=== PATIENT | female | born 2000 | race Caucasian/White ===

== ENCOUNTER 2021-03-02 12:48 | Emergency (ER) | payer OTHER ==
[~2021-03-02] VITALS: Ht 149.9 cm; Wt 89.0 kg
[~2021-03-02 12:48] MED LIST: RALTEGRAVIR 400 MG TAB (ISENTRESS) PO SCH; TRUVADA 200MG/300MG TABLET PO SCH
[2021-03-02 12:49] VITALS: BP 138/76
[2021-03-02 13:48] LABS: BASO # 0.1 10^3/uL (0.0-0.2); BASO % 0.5 % (0.0-1.0); EOS # 0.1 10^3/uL (0.0-0.5); EOS % 1.3 % (0.0-3.0); HEMATOCRIT 42.4 % (36.0-47.0); LYMPH # 1.6 10^3/uL (1.5-5.0); LYMPH % 16.3 % (24.0-44.0); MEAN CORPUSCULAR HEMOGLOBIN 28.7 pg (27.0-33.0); MEAN CORPUSCULAR VOLUME 86.9 fl (80.0-96.0); MONO # 0.6 10^3/uL (0.0-0.8); MONO % 5.5 % (2.0-8.0); NEUTROPHILS # 7.7 10^3/uL (1.5-8.5); NEUTROPHILS % 76.1 % (36.0-66.0); PLATELET COUNT, AUTOMATED 257 10^3/uL (150-450); RED BLOOD COUNT 4.88 10^6/uL (4.00-5.40); WHITE BLOOD COUNT 10.1 10^3/uL (4.0-10.0)
[2021-03-02 14:20] LABS: ALBUMIN 3.8 GM/DL (3.2-5.2); ALT/SGPT 35 U/L (12-78); BILIRUBIN,TOTAL 0.3 MG/DL (0.2-1.0); BLOOD UREA NITROGEN 7 MG/DL (7-18); CARBON DIOXIDE LEVEL 24 MEQ/L (21-32); CHLORIDE LEVEL 110 MEQ/L (98-107); CREATININE FOR GFR 0.61 MG/DL (0.55-1.30); GLOMERULAR FILTRATION RATE > 60.0 (>60); GLUCOSE, FASTING 91 MG/DL (70-100); SODIUM LEVEL 141 MEQ/L (136-145); TOTAL PROTEIN 7.9 GM/DL (6.4-8.2)
[2021-03-02 14:23] LABS: HCG, SERUM QUALITATIVE NEGATIVE (NEGATIVE)
[2021-03-02] MEDS ORDERED: LIDOCAINE 1% SDV 5ML VIAL DILUENT ONE (14:35)
[2021-03-02] MEDS ORDERED: EXPOSURE KIT-ADULT 7 DAY SUPPLY PO ONE (14:35)
[2021-03-02] MEDS ORDERED: EMTR1TAB16 PO (14:35)
[2021-03-02] MEDS ORDERED: cefTRIAXone SOD 250MG VIAL (J0696 PER 250MG) IM ONE (14:35)
[2021-03-02] MEDS ORDERED: DOXY-342 PO (14:35)
[2021-03-02] MEDS ORDERED: ULIPRISTAL ACETATE 30 MG TAB (ELLA) PO ONE (14:35)
[2021-03-02] MEDS ORDERED: metroNIDAZOLE (FLAGYL) 500MG TABLET PO ONE (14:35)
[2021-03-02] MEDS ORDERED: RALT40TA PO (14:35)
[2021-03-02] MEDS ORDERED: TRUVADA 200MG/300MG TABLET PO ONE (14:50)
[2021-03-02] MEDS ORDERED: RALTEGRAVIR 400 MG TAB (ISENTRESS) PO ONE (14:50)
[2021-03-03 11:15] LABS: HEPATITIS B SURFACE ANTIGEN NEGATIVE (NEGATIVE)
[2021-03-03 11:23] LABS: HEPATITIS B SURFACE ANTIBODY NEGATIVE (POSITIVE)
[2021-03-03 11:32] LABS: HEPATITIS C VIRUS ABY INDEX 0.1 INDEX (<0.8)
[2021-03-03 11:33] LABS: HIV 1&2 SCREEN CENTAUR NEGATIVE (NEGATIVE)
== END 2021-03-02 15:20 | disposition home or self-care (01) ==
LOC: M ED 12:48
DX: T76.21XA Adult sexual abuse, suspected, initial encounter (principal)
CPT/HCPCS: 80053; 84703; 85025; 86706; 86780; 86803; 87340; 87389; 96372; 99284; J0696

== ENCOUNTER → 2022-02-18 | Outpatient (CLI) | payer OTHER ==
[~2022-02-18] MED LIST changes: +DOXY-342 PO; +EMTR1TAB16 PO; +RALT40TA PO; -RALTEGRAVIR 400 MG TAB (ISENTRESS) PO SCH; -TRUVADA 200MG/300MG TABLET PO SCH
[2022-02-18 15:55] LABS: BASO % 0.3 % (0.0-1.0); EOS # 0.2 10^3/uL (0.0-0.5); EOS % 2.5 % (0.0-3.0); HEMOGLOBIN 13.3 g/dl (12.0-15.5); LYMPH # 1.5 10^3/uL (1.5-5.0); LYMPH % 15.8 % (24.0-44.0); MEAN CORPUSCULAR HEMOGLOBIN 29.4 pg (27.0-33.0); MEAN CORPUSCULAR HGB CONC 33.3 g/dl (32.0-36.5); MEAN CORPUSCULAR VOLUME 88.5 fl (80.0-96.0); MONO # 0.6 10^3/uL (0.0-0.8); MONO % 6.9 % (2.0-8.0); NEUTROPHILS # 6.9 10^3/uL (1.5-8.5); NEUTROPHILS % 74.3 % (36.0-66.0); PLATELET COUNT, AUTOMATED 271 10^3/uL (150-450); RED BLOOD COUNT 4.52 10^6/uL (4.00-5.40); WHITE BLOOD COUNT 9.2 10^3/uL (4.0-10.0)
[2022-02-18 17:25] LABS: HEPATITIS C VIRUS ABY INDEX 0.1 INDEX (<0.8); HIV 1&2 SCREEN CENTAUR NEGATIVE (NEGATIVE)
[2022-02-18 22:26] LABS: GC DNA AMPLIFICATION NEGATIVE (NEGATIVE)
== END ==
LOC: M PLALAB 14:17
PROVIDERS: ATTEND Advanced Practice Midwife
DX: O99.211 Obesity complicating pregnancy, first trimester (principal); Z3A.00 Weeks of gestation of pregnancy not specified

== ENCOUNTER → 2022-03-20 | Outpatient (CLI) | payer OTHER | LOC: M PLALAB 13:55 | PROVIDERS: ATTEND Advanced Practice Midwife | DX: Z34.82 Encounter for supervision of other normal pregnancy, second trimester (principal) ==

== ENCOUNTER → 2022-04-17 | Outpatient (CLI) | payer OTHER | LOC: M PLALAB 14:29 | PROVIDERS: ATTEND Advanced Practice Midwife | DX: Z34.02 Encounter for supervision of normal first pregnancy, second trimester (principal) ==

== ENCOUNTER → 2022-04-17 | Outpatient (CLI) | payer OTHER | LOC: M WHC 10:33 | PROVIDERS: ATTEND Advanced Practice Midwife | DX: Z34.82 Encounter for supervision of other normal pregnancy, second trimester (principal); Z3A.19 19 weeks gestation of pregnancy ==

== ENCOUNTER → 2022-05-13 | Outpatient (CLI) | payer OTHER | LOC: M WHC 11:55 | PROVIDERS: ATTEND Advanced Practice Midwife | DX: Z34.02 Encounter for supervision of normal first pregnancy, second trimester (principal) ==

== ENCOUNTER → 2022-06-12 | Outpatient (CLI) | payer OTHER ==
[~2022-06-12] MED LIST changes: -DOXY-342 PO; +DOXY100C81 PO
[2022-06-12 15:40] LABS: HEMATOCRIT 34.4 % (36.0-47.0); MEAN CORPUSCULAR HEMOGLOBIN 29.4 pg (27.0-33.0); PLATELET COUNT, AUTOMATED 259 10^3/uL (150-450); RED BLOOD COUNT 3.74 10^6/uL (4.00-5.40); WHITE BLOOD COUNT 9.7 10^3/uL (4.0-10.0)
[2022-06-12 17:28] LABS: GC DNA AMPLIFICATION NEGATIVE (NEGATIVE)
== END ==
LOC: M PLALAB 12:09
PROVIDERS: ATTEND Specialist
DX: O09.292 Supervision of pregnancy with other poor reproductive or obstetric history, second trimester (principal)

== ENCOUNTER → 2022-06-22 | Outpatient (CLI) | payer OTHER | LOC: M LAB 06:36 | PROVIDERS: ATTEND Specialist | DX: Z34.82 Encounter for supervision of other normal pregnancy, second trimester (principal) ==

== ENCOUNTER → 2022-08-04 | Outpatient (CLI) | payer OTHER ==
[2022-08-04 17:38] LABS: HEMATOCRIT 36.8 % (36.0-47.0); HEMOGLOBIN 11.7 g/dl (12.0-15.5); MEAN CORPUSCULAR HEMOGLOBIN 28.1 pg (27.0-33.0); MEAN CORPUSCULAR HGB CONC 31.8 g/dl (32.0-36.5); MEAN CORPUSCULAR VOLUME 88.2 fl (80.0-96.0); PLATELET COUNT, AUTOMATED 212 10^3/uL (150-450); RED BLOOD COUNT 4.17 10^6/uL (4.00-5.40); WHITE BLOOD COUNT 11.3 10^3/uL (4.0-10.0)
[2022-08-04 17:49] LABS: TOTAL PROTEIN,RANDOM URINE 38.1 MG/DL (0.0-14.0)
[2022-08-04 17:51] LABS: URIC ACID 6.1 MG/DL (3.1-7.8)
[2022-08-04 17:53] LABS: LDH LACTATE DEHYDROGENASE 224 U/L (120-246)
[2022-08-04 17:54] LABS: ALT/SGPT 9 U/L (7.0-40); AST/SGOT 17 U/L (<34); BILIRUBIN,TOTAL 0.2 MG/DL (0.3-1.2); CREATININE,RANDOM URINE 51.2 MG/DL; GLOMERULAR FILTRATION RATE > 60.0 (>60)
== END ==
LOC: M PLALAB 14:39
PROVIDERS: ATTEND Advanced Practice Midwife
DX: Z34.83 Encounter for supervision of other normal pregnancy, third trimester (principal)

== ENCOUNTER 2022-08-10 15:18 | Outpatient (CLI) | payer OTHER ==
[~2022-08-10] VITALS: Ht 149.9 cm; Wt 113.4 kg
[2022-08-10 15:47] VITALS: BP 139/79
[2022-08-10] MEDS ORDERED: PRENTAB9 PO (15:55)
[2022-08-10] MEDS ORDERED: OMEP10CASR PO (15:55)
[2022-08-10] MEDS ORDERED: HOME MED LIST COMPLETE! XX SCH (16:25)
[2022-08-10 17:45] VITALS: BP 141/69
== END 2022-08-10 18:00 | disposition home or self-care (01) ==
LOC: M LDO 15:18
PROVIDERS: ATTEND Advanced Practice Midwife
DX: O14.92 Unspecified pre-eclampsia, second trimester (principal); O99.213 Obesity complicating pregnancy, third trimester; E66.01 Morbid (severe) obesity due to excess calories; Z3A.36 36 weeks gestation of pregnancy

== ENCOUNTER 2022-08-12 17:21 | Inpatient (IN) | payer OTHER ==
[2022-08-12] VITALS (23 sets, daily range): BP systolic 131–214; BP diastolic 70–107
[~2022-08-12] VITALS: Ht 149.9 cm; Wt 114.7 kg
[~2022-08-12 17:21] MED LIST changes: +OMEP10CASR PO; +PRENTAB9 PO
[2022-08-12] MEDS ORDERED: PENICILLIN G POTASSIUM 5 MU IV 5 MU in D5W MINI-BAG PLUS 100 ML IV STA (17:53)
[2022-08-12] MEDS ORDERED: OXYTOCIN DRIP 30 UNITS in IV 1 EA IV PRN ×4 (17:55)
[2022-08-12] MEDS ORDERED: NIFEdipine 10 MG CAP PO ONE (17:55)
[2022-08-12] MEDS ORDERED: LIDOCAINE 1% MDV 20ML VIAL INFIL PRN (17:55)
[2022-08-12] MEDS ORDERED: MAG Sulf (L&D) 4 GM/100 ML 4 GM in IV 1 EA IV ONE (17:55)
[2022-08-12] MEDS ORDERED: CARBOPROST TROMETHAMINE 250 MCG/ML AMP IM PRN (17:55)
[2022-08-12] MEDS ORDERED: OXYTOCIN INJ 10UNITS/ML 1ML VIAL IM PRN (17:55)
[2022-08-12] MEDS ORDERED: miSOPROStol 50MCG 1/2 TABLET PO ONE (17:55)
[2022-08-12] MEDS ORDERED: TRANEXAMIC ACID INJection 1,000 MG in NS 100 ML IV PRN (17:55)
[2022-08-12] MEDS ORDERED: CALCIUM GLUCONATE 1,000 MG in D5W MINI-BAG PLUS 100 ML IV PRN (17:55)
[2022-08-12] MEDS ORDERED: BETAMETHASONE SOLUSPAN 6MG/ML 5ML VIAL IM SCH (17:55)
[2022-08-12 18:36] LABS: HEMATOCRIT 33.1 % (36.0-47.0); HEMOGLOBIN 10.8 g/dl (12.0-15.5); MEAN CORPUSCULAR HEMOGLOBIN 27.7 pg (27.0-33.0); MEAN CORPUSCULAR HGB CONC 32.6 g/dl (32.0-36.5); MEAN CORPUSCULAR VOLUME 84.9 fl (80.0-96.0); PLATELET COUNT, AUTOMATED 207 10^3/uL (150-450); WHITE BLOOD COUNT 10.1 10^3/uL (4.0-10.0)
[2022-08-12] MEDS: MAG Sulf (OBGYN) 20GM/500ML 20,000 MG in IV 1 EA IV SCH (18:46)
[2022-08-12 19:08] LABS: URIC ACID 7.4 MG/DL (3.1-7.8)
[2022-08-12 19:10] LABS: CREATININE,RANDOM URINE 102.2 MG/DL; LDH LACTATE DEHYDROGENASE 263 U/L (120-246)
[2022-08-12 19:11] LABS: ALT/SGPT 14 U/L (7.0-40); AST/SGOT 17 U/L (<34); BILIRUBIN,TOTAL < 0.2 MG/DL (0.3-1.2); CREATININE FOR GFR 0.65 MG/DL (0.55-1.30); GLOMERULAR FILTRATION RATE > 60.0 (>60)
[2022-08-12 19:13] LABS: TOTAL PROTEIN,RANDOM URINE 1053.4 MG/DL (0.0-14.0)
[2022-08-12] MEDS ORDERED: OXYTOCIN DRIP 30 UNITS in IV 1 EA IV SCH ×2 (19:30→23:40)
[2022-08-12] MEDS: LR 1,000 ML IV SCH (19:46)
[2022-08-12] MEDS ORDERED: ceFAZolin SOD 2 GM in IV 1 EA IV ONE (22:20)
[2022-08-12] MEDS ORDERED: BICITRA 30ML SOLN UDC PO ONE (22:20)
[2022-08-12] MEDS ORDERED: PEN G POT 3,000,000 UNIT/50 ML 3,000,000 UNIT in IV 1 EA IV SCH (22:26)
[2022-08-12] MEDS ORDERED: MORPHINE PRES-FREE INJ 10 MG/10 ML VIAL As Ordered ONE (22:41)
[2022-08-12] MEDS ORDERED: OXYTOCIN 30UNITS IN 0.9% NaCl 500ML IV BAG As Ordered ONE (22:43)
[2022-08-12] MEDS ORDERED: KETOROLAC 60MG 2ML VIAL As Ordered ONE (22:43)
[2022-08-12] MEDS ORDERED: ONDANSETRON 4MG 2ML VIAL As Ordered ONE (22:43)
[2022-08-12] MEDS ORDERED: PHENYLephrine 500MCG 5ML (100MCG/ML) SYRINGE As Ordered ONE (23:25)
[2022-08-12] MEDS ORDERED: SIMETHICONE 80MG CHEW TAB PO PRN (23:40)
[2022-08-12] MEDS ORDERED: RHOGAM 300MCG (1500IU) INJ IM SCH (23:40)
[2022-08-12] MEDS ORDERED: MOM 30ML SUSPENSION UDC PO PRN (23:40)
[2022-08-12] MEDS ORDERED: PROMETHAZINE 25 MG TAB PO PRN (23:40)
[2022-08-12] MEDS ORDERED: PERCOCET 5MG/325MG TAB PO PRN ×2 (23:40)
[2022-08-12] MEDS ORDERED: ONDANSETRON 4MG 2ML VIAL IV PRN (23:40)
[2022-08-13] VITALS (41 sets, daily range): BP systolic 114–164; BP diastolic 55–88
[2022-08-13] MEDS ORDERED: diphenhydrAMINE 50MG/ML VIAL IV PRN
[2022-08-13] MEDS ORDERED: ONDANSETRON 4MG 2ML VIAL IV PRN
[2022-08-13] MEDS: SLF 3 ML SYR IV SCH
[2022-08-13] MEDS ORDERED: NALOXONE INJ 0.4MG/1ML VIAL IV PRN ×2
[2022-08-13] MEDS ORDERED: METOCLOPRAMIDE INJ 10MG/2ML VIAL IV PRN
[2022-08-13] MEDS ORDERED: **NOTE PATIENT COMMENT** MISC XX SCH
[2022-08-13] MEDS ORDERED: UNRESOLVED CLARIFICATION ENTRY XX SCH (00:01)
[2022-08-13] MEDS ORDERED: IBUP80TA PO (00:04)
[2022-08-13] MEDS ORDERED: OXYC1TAB23 PO (00:04)
[2022-08-13] MEDS ORDERED: LABETALOL 100MG/20ML VIAL IV STA (04:23)
[2022-08-13] MEDS: KETOROLAC 30 MG/ML 1ML VIAL IV SCH ×3 (04:40→17:13)
[2022-08-13] MEDS: LR 1,000 ML IV SCH ×2 (05:13→16:23)
[2022-08-13 06:06] LABS: HEMATOCRIT 32.2 % (36.0-47.0); HEMOGLOBIN 10.3 g/dl (12.0-15.5); MEAN CORPUSCULAR HEMOGLOBIN 27.8 pg (27.0-33.0); PLATELET COUNT, AUTOMATED 199 10^3/uL (150-450); WHITE BLOOD COUNT 16.6 10^3/uL (4.0-10.0)
[2022-08-13] MEDS: MAG Sulf (OBGYN) 20GM/500ML 20,000 MG in IV 1 EA IV SCH ×2 (06:27→16:24)
[2022-08-13] MEDS: ENOXAPARIN 40MG/0.4ML SYRINGE (J1650 PER 10MG) SC SCH ×2 (08:39→20:00)
[2022-08-13] MEDS: PRENATAL VITAMINS CHEWABLE TABLET PO SCH (19:00)
[2022-08-13] MEDS: DOCUSATE SODIUM 100MG CAPSULE PO SCH ×2 (19:00→21:00)
[2022-08-14] MEDS: IBUPROFEN 800 MG TAB PO SCH ×3 (01:31→17:10)
[2022-08-14 02:00] VITALS: BP 138/74
[2022-08-14 06:00] VITALS: BP 124/76
[2022-08-14] MEDS: PRENATAL VITAMINS CHEWABLE TABLET PO SCH (07:31)
[2022-08-14] MEDS: ENOXAPARIN 40MG/0.4ML SYRINGE (J1650 PER 10MG) SC SCH ×2 (07:31→20:10)
[2022-08-14] MEDS: DOCUSATE SODIUM 100MG CAPSULE PO SCH ×2 (07:31→20:10)
[2022-08-14] MEDS: SLF 3 ML SYR IV SCH ×2 (07:54→07:55)
[2022-08-14] MEDS ORDERED: MEASLES,MUMPS,RUBELLA VACCINE INJ (MMR-II) SC.IMMUN ONE (09:00)
[2022-08-14 10:00] VITALS: BP 148/84
[2022-08-14 14:00] VITALS: BP 152/83
[2022-08-14 18:00] VITALS: BP 140/80
[2022-08-14 22:00] VITALS: BP 142/68
[2022-08-15] MEDS: IBUPROFEN 800 MG TAB PO SCH ×3 (01:23→16:33)
[2022-08-15 02:00] VITALS: BP 154/72
[2022-08-15 05:55] VITALS: BP 146/68
[2022-08-15 08:12] LABS: HEMATOCRIT 29.9 % (36.0-47.0); HEMOGLOBIN 9.3 g/dl (12.0-15.5); MEAN CORPUSCULAR HEMOGLOBIN 27.4 pg (27.0-33.0); MEAN CORPUSCULAR HGB CONC 31.1 g/dl (32.0-36.5); MEAN CORPUSCULAR VOLUME 88.2 fl (80.0-96.0); PLATELET COUNT, AUTOMATED 186 10^3/uL (150-450); RED BLOOD COUNT 3.39 10^6/uL (4.00-5.40); WHITE BLOOD COUNT 9.5 10^3/uL (4.0-10.0)
[2022-08-15] MEDS: ENOXAPARIN 40MG/0.4ML SYRINGE (J1650 PER 10MG) SC SCH ×2 (08:33→20:15)
[2022-08-15] MEDS: PRENATAL VITAMINS CHEWABLE TABLET PO SCH (08:33)
[2022-08-15] MEDS: DOCUSATE SODIUM 100MG CAPSULE PO SCH ×2 (08:34→20:15)
[2022-08-15 10:00] VITALS: BP 142/76
[2022-08-15] MEDS: NIFEdipine 30MG XL TAB PO SCH (11:07)
[2022-08-15 14:00] VITALS: BP 126/74
[2022-08-15 18:00] VITALS: BP 136/61
[2022-08-15 22:00] VITALS: BP 134/72
[2022-08-16] MEDS: IBUPROFEN 800 MG TAB PO SCH ×2 (00:56→08:08)
[2022-08-16 02:00] VITALS: BP 135/66
[2022-08-16 06:00] VITALS: BP 138/88
[2022-08-16] MEDS: DOCUSATE SODIUM 100MG CAPSULE PO SCH (08:07)
[2022-08-16] MEDS: ENOXAPARIN 40MG/0.4ML SYRINGE (J1650 PER 10MG) SC SCH (08:08)
[2022-08-16 08:10] VITALS: BP 132/80
[2022-08-16] MEDS: PRENATAL VITAMINS CHEWABLE TABLET PO SCH (08:10)
[2022-08-16] MEDS: NIFEdipine 30MG XL TAB PO SCH (08:10)
[2022-08-16 10:07] VITALS: BP 142/82
[2022-08-16] MEDS ORDERED: NIFE1TAB52 PO (11:03)
[2022-08-16] MEDS ORDERED: COLA100C5 PO (11:03)
== END 2022-08-16 12:15 | disposition home or self-care (01) | DRG 540 ==
LOC: M LDO 17:21 → M LDI 17:52 → M OBS 08-14 01:27
PROVIDERS: ADMIT Advanced Practice Midwife; ATTEND Specialist
PROC: 10D00Z1 Extraction of Products of Conception, Low, Open Approach (ICD-10-PCS; principal; 2022-08-12 23:33)
DX: O14.14 Severe pre-eclampsia complicating childbirth (principal); O99.824 Streptococcus B carrier state complicating childbirth; Z3A.36 36 weeks gestation of pregnancy; O76 Abnormality in fetal heart rate and rhythm complicating labor and delivery; Z37.0 Single live birth

== ENCOUNTER → 2023-03-22 | Outpatient (REF) | payer OTHER ==
[~2023-03-22] MED LIST changes: +COLA100C5 PO; -DOXY100C81 PO; +DOXY100C82 PO; +IBUP80TA PO; +NIFE1TAB52 PO; +OXYC1TAB23 PO
== END ==
LOC: M PLALAB 15:03
PROVIDERS: ATTEND Advanced Practice Midwife
DX: Z34.91 Encounter for supervision of normal pregnancy, unspecified, first trimester (principal); O09.299 Supervision of pregnancy with other poor reproductive or obstetric history, unspecified trimester; Z34.81 Encounter for supervision of other normal pregnancy, first trimester

== ENCOUNTER → 2023-03-29 | Outpatient (CLI) | payer OTHER ==
[2023-03-29 13:45] LABS: HEMATOCRIT 37.5 % (36.0-47.0); MEAN CORPUSCULAR HEMOGLOBIN 27.3 pg (27.0-33.0); MEAN CORPUSCULAR VOLUME 85.2 fl (80.0-96.0); PLATELET COUNT, AUTOMATED 218 10^3/uL (150-450); WHITE BLOOD COUNT 6.1 10^3/uL (4.0-10.0)
[2023-03-29 14:03] LABS: TOTAL PROTEIN,RANDOM URINE 15.1 MG/DL (0.0-14.0)
[2023-03-29 14:11] LABS: LDH LACTATE DEHYDROGENASE 182 U/L (120-246); URIC ACID 3.9 MG/DL (3.1-7.8)
[2023-03-29 14:12] LABS: ALT/SGPT 18 U/L (7.0-40); AST/SGOT < 8 U/L (<34); BILIRUBIN,TOTAL 0.2 MG/DL (0.3-1.2); CREATININE FOR GFR 0.48 MG/DL (0.55-1.30); GLOMERULAR FILTRATION RATE > 60.0 (>60)
[2023-03-29 14:38] LABS: HIV 1&2 SCREEN NEGATIVE (NEGATIVE)
[2023-03-29 14:46] LABS: HEPATITIS C VIRUS ABY INDEX 0.13 INDEX (<0.8)
[2023-03-29 23:30] LABS: GC DNA AMPLIFICATION NEGATIVE (NEGATIVE)
== END ==
LOC: M PLALAB 09:07
PROVIDERS: ATTEND Advanced Practice Midwife
DX: O09.299 Supervision of pregnancy with other poor reproductive or obstetric history, unspecified trimester (principal); Z3A.00 Weeks of gestation of pregnancy not specified

== ENCOUNTER → 2023-04-21 | Outpatient (REF) | payer OTHER | LOC: M SFHCWAGY 12:31 | PROVIDERS: ATTEND Specialist | DX: N39.0 Urinary tract infection, site not specified (principal) ==

== ENCOUNTER → 2023-05-18 | Outpatient (REF) | payer OTHER | LOC: M PLALAB 13:15 | PROVIDERS: ATTEND Advanced Practice Midwife | DX: Z36.9 Encounter for antenatal screening, unspecified (principal) ==

== ENCOUNTER → 2023-05-18 | Outpatient (CLI) | payer OTHER | LOC: M WHC 07:40 | PROVIDERS: ATTEND Specialist | DX: Z34.82 Encounter for supervision of other normal pregnancy, second trimester (principal) ==

== ENCOUNTER → 2023-06-21 | Outpatient (REF) | payer OTHER ==
[2023-06-21 15:55] LABS: CHLAMYDIA DNA AMPLIFICATION NEGATIVE (NEGATIVE); GC DNA AMPLIFICATION NEGATIVE (NEGATIVE)
== END ==
LOC: M PLALAB 09:11
PROVIDERS: ATTEND Advanced Practice Midwife
DX: Z34.92 Encounter for supervision of normal pregnancy, unspecified, second trimester (principal)

== ENCOUNTER → 2023-07-16 | Outpatient (CLI) | payer OTHER ==
[2023-07-16 14:13] LABS: HEMATOCRIT 32.6 % (36.0-47.0); HEMOGLOBIN 10.3 g/dl (12.0-15.5); MEAN CORPUSCULAR HGB CONC 31.6 g/dl (32.0-36.5); MEAN CORPUSCULAR VOLUME 88.6 fl (80.0-96.0); PLATELET COUNT, AUTOMATED 222 10^3/uL (150-450); RED BLOOD COUNT 3.68 10^6/uL (4.00-5.40); WHITE BLOOD COUNT 7.7 10^3/uL (4.0-10.0)
[2023-07-16 15:32] LABS: CHLAMYDIA DNA AMPLIFICATION NEGATIVE (NEGATIVE); GC DNA AMPLIFICATION NEGATIVE (NEGATIVE)
== END ==
LOC: M PLALAB 09:22
PROVIDERS: ATTEND Advanced Practice Midwife
DX: Z34.92 Encounter for supervision of normal pregnancy, unspecified, second trimester (principal); Z3A.00 Weeks of gestation of pregnancy not specified
CPT/HCPCS: 36415; 82950; 85027; 86850; 86900; 86901; 87086; 87810; 87850; J2790

== ENCOUNTER → 2023-07-16 | Outpatient (CLI) | payer OTHER | LOC: M WHC 08:27 | PROVIDERS: ATTEND Advanced Practice Midwife | DX: Z34.92 Encounter for supervision of normal pregnancy, unspecified, second trimester (principal); Z3A.27 27 weeks gestation of pregnancy ==

== ENCOUNTER → 2023-07-22 | Outpatient (CLI) | payer OTHER | LOC: M LAB 06:25 | PROVIDERS: ATTEND Advanced Practice Midwife | DX: O99.810 Abnormal glucose complicating pregnancy (principal) ==

== ENCOUNTER → 2023-09-15 | Outpatient (REF) | payer OTHER | LOC: M SFHCWAGY 12:29 | PROVIDERS: ATTEND Specialist | DX: Z34.83 Encounter for supervision of other normal pregnancy, third trimester (principal) ==

== ENCOUNTER → 2023-09-16 | Outpatient (CLI) | payer OTHER | LOC: M WHC 07:29 | PROVIDERS: ATTEND Obstetrics & Gynecology | DX: O26.843 Uterine size-date discrepancy, third trimester (principal) ==

== ENCOUNTER 2023-10-04 05:03 | Inpatient (IN) | payer OTHER ==
[~2023-10-04] VITALS: Ht 149.9 cm; Wt 115.6 kg
[2023-10-04] VITALS (9 sets, daily range): BP systolic 112–141; BP diastolic 56–76; TEMP 96.9; O2SAT 96–100
[~2023-10-04 05:03] MED LIST changes: +ASPI81TA26 PO; +OMEP-173 PO; +PREN1CHW6 PO
[2023-10-04 06:53] LABS: HEMATOCRIT 32.2 % (36.0-47.0); HEMOGLOBIN 9.6 g/dl (12.0-15.5); MEAN CORPUSCULAR HEMOGLOBIN 24.5 pg (27.0-33.0); MEAN CORPUSCULAR HGB CONC 29.8 g/dl (32.0-36.5); MEAN CORPUSCULAR VOLUME 82.1 fl (80.0-96.0); PLATELET COUNT, AUTOMATED 245 10^3/uL (150-450); RED BLOOD COUNT 3.92 10^6/uL (4.00-5.40); WHITE BLOOD COUNT 7.9 10^3/uL (4.0-10.0)
[2023-10-04] MEDS: ceFAZolin SOD 2 GM in IV 1 EA IV ONE (07:26)
[2023-10-04] MEDS: BICITRA 30ML SOLN UDC PO ONE (07:26)
[2023-10-04] MEDS: LACTATED RINGER'S 1000 ML IV STA (07:26)
[2023-10-04] MEDS: LR 1,000 ML IV SCH ×2 (07:36→13:52)
[2023-10-04] MEDS ORDERED: ACETAMINOPHEN 1000MG 100ML IV BAG As Ordered ONE (08:15)
[2023-10-04] MEDS ORDERED: KETOROLAC 60MG 2ML VIAL As Ordered ONE (08:15)
[2023-10-04] MEDS ORDERED: MORPHINE PRES-FREE INJ 10 MG/10 ML VIAL As Ordered ONE (08:15)
[2023-10-04] MEDS ORDERED: OXYTOCIN 30UNITS IN 0.9% NaCl 500ML IV BAG As Ordered ONE (08:15)
[2023-10-04] MEDS ORDERED: ONDANSETRON 4MG 2ML VIAL As Ordered ONE (08:15)
[2023-10-04] MEDS ORDERED: RHOGAM 300MCG (1500IU) INJ IM SCH (08:35)
[2023-10-04] MEDS ORDERED: PERCOCET 5MG/325MG TAB PO PRN ×2 (08:35)
[2023-10-04] MEDS ORDERED: COLA100C5 PO (08:39)
[2023-10-04 08:48] LABS: CORD GAS O2 SAT V 59.7 %; CORD GAS PCO2 V 45.5 mmHg; CORD GAS PH V 7.34 UNITS; CORD GAS PO2 V 24.9 mmHg; CORD GAS SBC V 21.9 MMOL/L; CORD GAS TCO2 V 25.4 MMOL/L
[2023-10-04 08:50] LABS: CORD GAS ABE A -4.4; CORD GAS HCO3 A 23.8 MMOL/L; CORD GAS O2 SAT A 59.2 %; CORD GAS PCO2 A 57.1 mmHg; CORD GAS PH A 7.238 UNITS; CORD GAS PO2 A 27.4 mmHg; CORD GAS TCO2 A 25.6 MMOL/L
[2023-10-04] MEDS: PRENATAL VITAMINS CHEWABLE TABLET PO SCH (09:00)
[2023-10-04] MEDS: OXYTOCIN DRIP 30 UNITS in IV 1 EA IV SCH (09:01)
[2023-10-04] MEDS ORDERED: MEPERIDINE 25 MG/ML 1ML VIAL IV PRN (09:20)
[2023-10-04] MEDS ORDERED: HYDROMORPHONE HCL 0.5 MG/ 0.5 ML SYRINGE IV PRN (09:20)
[2023-10-04] MEDS: SLF 3 ML SYR IV SCH (09:20)
[2023-10-04] MEDS ORDERED: NALOXONE INJ 0.4MG/1ML VIAL IV PRN ×2 (09:20)
[2023-10-04] MEDS ORDERED: METOCLOPRAMIDE INJ 10MG/2ML VIAL IV PRN (09:20)
[2023-10-04] MEDS ORDERED: fentaNYL 100 MCG/2 ML INJECTION IV PRN (09:20)
[2023-10-04] MEDS ORDERED: **NOTE PATIENT COMMENT** MISC XX SCH (09:20)
[2023-10-04] MEDS ORDERED: ONDANSETRON 4MG 2ML VIAL IV PRN (09:20)
[2023-10-04] MEDS ORDERED: diphenhydrAMINE 50MG/ML VIAL As Ordered ONE (09:34)
[2023-10-04] MEDS ORDERED: oxyCODONE 5MG TAB As Ordered ONE (09:34)
[2023-10-04] MEDS: diphenhydrAMINE 50MG/ML VIAL IV PRN (09:36)
[2023-10-04] MEDS: oxyCODONE 5MG TAB PO PRN (09:37)
[2023-10-04] MEDS: KETOROLAC 30 MG/ML 1ML VIAL IV SCH (16:03)
[2023-10-04] MEDS: ENOXAPARIN 60MG/0.6ML SYRINGE (J1650 PER 10MG) SC SCH (21:31)
[2023-10-05] VITALS (7 sets, daily range): BP systolic 118–160; BP diastolic 56–75; O2SAT 97–100
[2023-10-05 07:11] LABS: HEMATOCRIT 27.7 % (36.0-47.0); HEMOGLOBIN 8.1 g/dl (12.0-15.5); MEAN CORPUSCULAR HEMOGLOBIN 24.3 pg (27.0-33.0); MEAN CORPUSCULAR HGB CONC 29.2 g/dl (32.0-36.5); MEAN CORPUSCULAR VOLUME 83.2 fl (80.0-96.0); PLATELET COUNT, AUTOMATED 198 10^3/uL (150-450); RED BLOOD COUNT 3.33 10^6/uL (4.00-5.40); WHITE BLOOD COUNT 8.7 10^3/uL (4.0-10.0)
[2023-10-05] MEDS: IBUPROFEN 800 MG TAB PO SCH (13:15)
[2023-10-05] MEDS: SIMETHICONE 80MG CHEW TAB PO PRN (19:53)
[2023-10-06 01:35] VITALS: BP 123/58; O2SAT 99
[2023-10-06 05:30] VITALS: BP 137/76
[2023-10-06] MEDS: MEASLES,MUMPS,RUBELLA VACCINE INJ (MMR-II) SC.IMMUN ONE (07:42)
== END 2023-10-06 11:33 | disposition home or self-care (01) | DRG 540 ==
LOC: M LDI 05:03 → M OBS 10:06
PROVIDERS: ADMIT Specialist; ATTEND Specialist
PROC: 10D00Z1 Extraction of Products of Conception, Low, Open Approach (ICD-10-PCS; principal; 2023-10-04 07:30)
DX: O34.211 Maternal care for low transverse scar from previous cesarean delivery (principal); Z37.0 Single live birth; Z3A.39 39 weeks gestation of pregnancy